=== PATIENT | female | born 1960 | race Caucasian/White ===

== ENCOUNTER → 2017-06-29 | Day surgery (SDC) | payer BC, MEDICARE ==
[~2017-06-29] VITALS: Ht 160 cm; Wt 62.2 kg
[~2017-06-29] MED LIST: ALIVE WOMEN'S1 EAC1 PO; AMPYRA10 MG PO; APPLE CIDER VINEGAR PO; CAL MAG ZINC +1 EACH PO; COCONUT OIL1000 MG PO; GILENYA0.5 MG PO; LEVOCETIRIZINE D5 MG PO; LOTENSIN20 MG PO; MACRODANTIN *IA50 MG PO; MYRBETRIQ50 MG PO; NABUMETONE750 MG PO; OMEGA 3 1,0001 EACH PO; PRESERVISION A1 EAC1 PO; TIZANIDINE HCL2 MG PO; VITAMIN B-121000 MCG PO; VITAMIN C1000 MG PO; VITAMIN D1000 UNIT PO; ZOCOR80 MG PO
== END ==
LOC: GPOC 06-17 10:00 → GEND 07:42 → GPOC 08:00
PROC: 0DJD8ZZ Inspection of Lower Intestinal Tract, Via Natural or Artificial Opening Endoscopic (ICD-10-PCS; principal; 2017-06-29)
DX: Z12.11 Encounter for screening for malignant neoplasm of colon (principal); I12.9 Hypertensive chronic kidney disease with stage 1 through stage 4 chronic kidney disease, or unspecified chronic kidney disease; N18.3 Chronic kidney disease, stage 3 (moderate); E78.2 Mixed hyperlipidemia; G35 Multiple sclerosis; Z98.890 Other specified postprocedural states; Z79.52 Long term (current) use of systemic steroids; Z79.899 Other long term (current) drug therapy
CPT/HCPCS: J2001; J7030